=== PATIENT | male | born 1995 | race Caucasian/White ===

== ENCOUNTER 2018-04-27 13:30 | Emergency (ER) | payer OTHER ==
[2018-04-27] MEDS ORDERED: Sodium Chloride 0.9% 10 ML Syringe FLUSH PRN (14:46)
--- NOTE | 2018-04-27 14:49 | EDM.PDOC ---
ED HPI GENERAL MEDICAL PROBLEM - General Chief Complaint: Chest Pain Stated Complaint: CHEST PAIN Time Seen by Provider: 04/27/18 14:27 Source of Information: Reports: Patient History Limitations: Reports: No Limitations - History of Present Illness INITIAL COMMENTS - FREE TEXT/NARRATIVE: 22-year-old male presents for evaluation and treatment of chest pain. Patient reports the chest pain started after playing softball morning. States that he experienced sudden onset of chest pain and shortness of breath. He ran into a fence at one point it but did not experience chest pain immediately afterwards. States he caught himself with his arms before he ran into the fence. A short while After he developed chest pain he went and sat down a friend truck. He states that he felt very dizzy. Experienced tunnel vision. States that his hands and feet became tingly and numb feeling. He denies any headaches, syncope , fevers, chills or any cough. No pain or swelling in his legs. Reports the chest pain is only present currently when he takes a deep breath. patient reports his pain feels similar to when he had pneumonia as a high school student. No history of any clotting disorders that he is aware of. Chest Pain Score (Numeric/FACES): 6 - Related Data Allergies Allergy/AdvReac Type Severity Reaction Status Date / Time No Known Allergies Allergy Verified 04/27/18 13:39 Home Meds: Home Meds . [No Known Home Meds] 04/27/18 [History] Past Medical History - Past Health History Medical/Surgical History: Denies Medical/Surgical History Social & Family History - Tobacco Use Smoking Status *Q: Former Smoker Used Tobacco, but Quit: No - Caffeine Use Caffeine Use: Reports: None - Recreational Drug Use Recreational Drug Use: No ED ROS GENERAL - Review of Systems Review Of Systems: See Below Constitutional: Denies: Fever, Chills HEENT: Reports: Vision Change (reports experiencing tunnel vision) Respiratory: Reports: Shortness of Breath, Pleuritic Chest Pain. Denies: Cough , Sputum GI/Abdominal: Reports: Nausea. Denies: Abdominal Pain, Vomiting Neurological: Reports: Dizziness, Numbness (bilateral feet), Tingling ( bilateral feet). Denies: Headache, Syncope ED EXAM, GENERAL - Physical Exam Exam: See Below Exam Limited By: No Limitations General Appearance: Alert, WD/WN, No Apparent Distress, Obese Throat/Mouth: Normal Inspection, Normal Voice, No Airway Compromise Respiratory/Chest: No Respiratory Distress, Lungs Clear, Normal Breath Sounds Cardiovascular: Normal Peripheral Pulses, Regular Rate, Rhythm, No Murmur Neurological: Alert, Oriented, Normal Cognition Psychiatric: Normal Affect, Normal Mood Skin Exam: Warm, Dry, Normal Color EKG INTERPRETATION EKG Date: 04/27/18 Time: 13:50 Rhythm: Other (sinus tachycardia at 115 bpm.) Rate (Beats/Min): 115 [place]: Normal P-Wave: Present QRS: Normal ST-T: Normal QT: Normal EKG Interpretation Comments: Sinus tachycardia at 115 bpm. No ischemic changes. Diffuse J-point elevation. No left axis deviation. No left ventricular hypertrophy. No interventricular conduction delay. QTC within normal limits. No prior EKG for comparison. Reviewed by myself and Dr. Rock Course - Vital Signs Last Recorded V/S: Last Vital Signs Temp 98.4 F 04/27/18 13:39 Pulse 122 H 04/27/18 13:39 Resp 35 H 04/27/18 13:39 BP 116/71 04/27/18 13:39 Pulse Ox 100 04/27/18 13:39 - Orders/Labs/Meds Labs: Laboratory Tests 04/27/18 04/27/18 04/27/18 Range/Units 14:00 14:00 14:00 WBC 7.54 (4.23-9.07) K/mm3 RBC 5.36 (4.63-6.08) M/mm3 Hgb 15.4 (13.7-17.5) gm/L Hct 45.2 (40.1-51.0) % MCV 84.3 (79.0-92.2) fl MCH 28.7 (25.7-32.2) pg MCHC 34.1 (32.2-35.5) g/dl RDW Std Deviation 38.1 (35.1-43.9) fL Plt Count 256 (163-337) K/mm3 MPV 11.0 (9.4-12.3) fl Neut % (Auto) 57.3 (34.0-67.9) % Lymph % (Auto) 30.8 (21.8-53.1) % Harris % (Auto) 10.9 (5.3-12.2) % Eos % (Auto) 0.4 L (0.8-7.0) Baso % (Auto) 0.3 (0.1-1.2) % Neut # (Auto) 4.33 (1.78-5.38) K/mm3 Lymph # (Auto) 2.32 (1.32-3.57) K/mm3 Harris # (Auto) 0.82 (0.30-0.82) K/mm3 Eos # (Auto) 0.03 L (0.04-0.54) K/mm3 Baso # (Auto) 0.02 (0.01-0.08) K/mm3 PT (9.5-12.1) SECONDS INR APTT (24-31) SECONDS D-Dimer, Quantitative 0.38 (0.19-0.50) mg/L Sodium 138 (136-145) mEq/L Potassium 3.9 (3.5-5.1) mEq/L Chloride 100 (98-107) mEq/L Carbon Dioxide 19 L (21-32) mEq/L Anion Gap 22.9 H (5-15) BUN 22 H (7-18) mg/dL Creatinine 1.3 (0.7-1.3) mg/dL Est Cr Clr Drug Dosing 99.88 mL/min Estimated GFR (MDRD) > 60 (>60) mL/min BUN/Creatinine Ratio 16.9 (14-18) Glucose 91 (74-106) mg/dL Calcium 9.7 (8.5-10.1) mg/dL Total Bilirubin 0.5 (0.2-1.0) mg/dL AST 22 (15-37) U/L ALT 29 (16-63) U/L Alkaline Phosphatase 77 (46-116) U/L C-Reactive Protein 0.8 (<1.0) mg/dL Total Protein 8.4 H (6.4-8.2) g/dl Albumin 4.4 (3.4-5.0) g/dl Globulin 4.0 gm/dL Albumin/Globulin Ratio 1.1 (1-2) 04/27/18 Range/Units 14:00 WBC (4.23-9.07) K/mm3 RBC (4.63-6.08) M/mm3 Hgb (13.7-17.5) gm/L Hct (40.1-51.0) % MCV (79.0-92.2) fl MCH (25.7-32.2) pg MCHC (32.2-35.5) g/dl RDW Std Deviation (35.1-43.9) fL Plt Count (163-337) K/mm3 MPV (9.4-12.3) fl Neut % (Auto) (34.0-67.9) % Lymph % (Auto) (21.8-53.1) % Harris % (Auto) (5.3-12.2) % Eos % (Auto) (0.8-7.0) Baso % (Auto) (0.1-1.2) % Neut # (Auto) (1.78-5.38) K/mm3 Lymph # (Auto) (1.32-3.57) K/mm3 Harris # (Auto) (0.30-0.82) K/mm3 Eos # (Auto) (0.04-0.54) K/mm3 Baso # (Auto) (0.01-0.08) K/mm3 PT 10.8 (9.5-12.1) SECONDS INR 0.99 APTT 24 (24-31) SECONDS D-Dimer, Quantitative (0.19-0.50) mg/L Sodium (136-145) mEq/L Potassium (3.5-5.1) mEq/L Chloride (98-107) mEq/L Carbon Dioxide (21-32) mEq/L Anion Gap (5-15) BUN (7-18) mg/dL Creatinine (0.7-1.3) mg/dL Est Cr Clr Drug Dosing mL/min Estimated GFR (MDRD) (>60) mL/min BUN/Creatinine Ratio (14-18) Glucose (74-106) mg/dL Calcium (8.5-10.1) mg/dL Total Bilirubin (0.2-1.0) mg/dL AST (15-37) U/L ALT (16-63) U/L Alkaline Phosphatase (46-116) U/L C-Reactive Protein (<1.0) mg/dL Total Protein (6.4-8.2) g/dl Albumin (3.4-5.0) g/dl Globulin gm/dL Albumin/Globulin Ratio (1-2) Meds: Medications Discontinued Medications Generic Name Dose Route Start Last Admin Trade Name Jelani PRN Reason Stop Dose Admin Sodium Chloride 10 ml 04/27/18 14:46 04/27/18 16:16 Saline Flush FLUSH 10 ml ASDIRECTED PRN Administration Keep Vein Open - Radiology Interpretation Free Text/Narrative:: chest xray shows no acute fractures or dislocations - Re-Assessments/Exams Free Text/Narrative Re-Assessment/Exam: 04/27/18 16:59 Reviewed the labs, ekg and imaging with the patient. He is mildly dehydrated. This likely caused the dizziness and tunnel vision he experienced. Chest pain more likely pleurisy. Will discharge home at this time. Discharge instructions as documented. Departure - Departure Time of Disposition: 17:15 Disposition: Home, Self-Care 01 Condition: Good Clinical Impression: Pleurisy, Dehydration Instructions: Dehydration, Adult, [id number], Pleurisy, [id number] Referrals: PCP,None [Primary Care Provider] - Forms: ED Department Discharge Additional Instructions: make sure you are drinking plenty of fluids. go home and rest today. [id number] Tylenol or Motrin seen for her discomfort. Expect this to last about 7 days. If it persists beyond 7 days follow-up with family medicine. At the [facility], recommend Alicia Shen or Hui Gallardo. Call to scheduled with one of these providers. Position to the ER if your symptoms change or worsen.
--- NOTE | 2018-05-01 08:24 | CR ---
Chest: Two views of the chest were obtained. Comparison: No prior chest x-ray is available. Nodule is identified within the left upper lung most likely representing granuloma. Lungs otherwise are clear without acute parenchymal change. Heart size is normal. Upper mediastinum is within normal limits. Bony structures are unremarkable. Impression: 1. Nodule within the left upper chest most likely representing granuloma. 2. Nothing acute is appreciated on two-view chest x-ray. Diagnostic code #2
== END 2018-04-27 17:25 | disposition home or self-care (01) ==
LOC: JD.ED 13:30
DX: R09.1 Pleurisy (principal); E86.0 Dehydration; Z87.891 Personal history of nicotine dependence
CPT/HCPCS: 36415; 71046; 80053; 85025; 85379; 85610; 85730; 86140; 93005; 99285; J7050